=== PATIENT | male | born 1990 | race African-American/Black ===

== ENCOUNTER 2022-03-25 23:17 | Emergency (ER) | payer MEDICAID, SELFPAY ==
[~2022-03-25] VITALS: Ht 175.3 cm; Wt 70.4 kg
[2022-03-26 00:24] LABS: HEMATOCRIT 40.8 % (42.0-52.0); HEMOGLOBIN 13.6 g/dl (13.5-17.5); MEAN CORPUSCULAR HEMOGLOBIN 29.6 pg (27.0-33.0); MEAN CORPUSCULAR HGB CONC 33.3 g/dl (32.0-36.5); MEAN CORPUSCULAR VOLUME 88.7 fl (80.0-96.0); PLATELET COUNT, AUTOMATED 330 10^3/uL (150-450); WHITE BLOOD COUNT 6.5 10^3/uL (4.0-10.0)
[2022-03-26 00:36] LABS: RSV AMPLIFICATION NEGATIVE (NEGATIVE)
[2022-03-26 02:06] LABS: ACETAMINOPHEN LEVEL < 2.0 UG/ML (10.0-30.0); ALBUMIN 3.8 GM/DL (3.2-5.2); ALT/SGPT 69 U/L (12-78); BILIRUBIN,DIRECT 0.1 MG/DL (0.0-0.2); BILIRUBIN,TOTAL 0.3 MG/DL (0.2-1.0); BLOOD UREA NITROGEN 15 MG/DL (7-18); CALCIUM LEVEL 9.2 MG/DL (8.5-10.1); CARBON DIOXIDE LEVEL 19 MEQ/L (21-32); CHLORIDE LEVEL 110 MEQ/L (98-107); CREATININE FOR GFR 1.13 MG/DL (0.70-1.30); ETHYL ALCOHOL (ETHANOL) 0.156 % (0.000-0.010); GLOMERULAR FILTRATION RATE > 60.0 (>60); GLUCOSE, FASTING 67 MG/DL (70-100); SALICYLATE LEVEL 3.3 MG/DL (5.0-30.0); SODIUM LEVEL 142 MEQ/L (136-145); THYROID STIMULATING HORMONE 0.765 uIU/ML (0.358-3.740); TOTAL PROTEIN 8.5 GM/DL (6.4-8.2)
[2022-03-26 02:18] LABS: AMPHETAMINES LEVEL URINE NEGATIVE (NEGATIVE); BARBITURATES URINE NEGATIVE (NEGATIVE); BENZODIAZEPINES URINE NEGATIVE (NEGATIVE); CANNABINOIDS URINE POSITIVE (NEGATIVE); COCAINE METABOLITE URINE POSITIVE (NEGATIVE); METHADONE URINE NEGATIVE (NEGATIVE); OPIATES URINE NEGATIVE (NEGATIVE); PHENCYCLIDINE URINE NEGATIVE (NEGATIVE)
[2022-03-26] MEDS ORDERED: LORazepam 2 MG TAB PO STA (06:57)
[2022-03-26] MEDS ORDERED: OLANZapine ORAL DISINTEGRATING TAB 5MG PO ONE ×2 (07:45→18:55)
[2022-03-26] MEDS ORDERED: HOME MED LIST COMPLETE! XX SCH (10:40)
[2022-03-27 02:51] VITALS: BP 142/80
== END 2022-03-27 02:54 ==
LOC: M ED 23:17
DX: F23 Brief psychotic disorder (principal)